=== PATIENT | female | born 1980 | race Caucasian/White ===

== ENCOUNTER → 2016-12-27 | Outpatient (CLI) | payer BC ==
--- NOTE | 2016-12-27 13:45 | RAD ---
HISTORY: Left rib and back pain after fall Study: Left rib series Comparison: 01/12/2012 Findings: The lungs are clear without consolidation, effusion or pneumothorax. The cardiac and mediastinal con tours are within normal limits. No definite displaced rib fracture is identified. The bony thorax appears intact. IMPRESSION: 1. No displaced rib fracture identified. 2. No acute cardiopulmonary abnormality. Reported By:
== END ==
LOC: RAD 12:28
PROVIDERS: ATTEND Nurse Practitioner Family
DX: R07.81 Pleurodynia (principal)
CPT/HCPCS: 71111